=== PATIENT | male | born 1950 | race Two or more races ===

== ENCOUNTER 2024-06-02 13:07 | Inpatient (IN) | payer MEDICARE ==
[2024-06-02 14:21] LABS: BASOPHILS ABSOLUTE AUTO 0.04 K/mm3 (0.00-0.23); BASOPHILS PERCENT AUTO 0 % (0-2); EOSINOPHILS ABSOLUTE AUTO 0.09 K/mm3 (0.00-0.68); EOSINOPHILS PERCENT AUTO 1 % (0-6); Hematocrit 43.4 % (37.0-53.0); Hemoglobin 15.4 g/dL (13.5-17.5); IMMATURE GRAN ABSOLUTE AUTO 0.03 K/mm3 (0.00-0.10); IMMATURE GRAN PERCENT AUTO 0 % (0-1); LYMPHOCYTES ABSOLUTE AUTO 3.03 K/mm3 (0.84-5.20); LYMPHOCYTES PERCENT AUTO 33 % (21-46); MONOCYTES ABSOLUTE AUTO 0.73 K/mm3 (0.16-1.47); MONOCYTES PERCENT AUTO 8 % (4-13); Mean Corpuscular HGB 32.5 pg (26.0-34.0); Mean Corpuscular HGB Conc 35.5 g/dL (31.5-36.5); Mean Corpuscular Volume 92 fL (80-100); Mean Platelet Volume 11.1 fL (9.1-12.4); NEUTROPHILS ABSOLUTE AUTO 5.34 K/mm3 (1.96-9.15); NEUTROPHILS PERCENT AUTO 58 % (41-73); Platelet Count 182 K/mm3 (150-400); RDW Coefficient Variation 12.4 % (11.7-14.2); RDW Standard Deviation 42.1 fL (35.1-46.3); Red Blood Cell Count 4.74 M/mm3 (4.30-5.90); White Blood Cell Count 9.26 K/mm3 (4.00-11.30)
[2024-06-02 14:43] LABS: Alanine Aminotransfer (ALT/SGP 15 U/L (12-78); Albumin, Blood 3.6 g/dL (3.4-5.0); Alk Phos 120 U/L (50-136); Anion Gap 10 mmol/L (3-11); Aspartate Aminotrans (AST/SGOT 14 U/L (12-37); Bilirubin, Total 0.8 mg/dL (0.1-1.0); Blood Urea Nitrogen 15 mg/dL (8-24); Bun/Creatinine Ratio 20.4 (12.0-20.0); CO2, Blood 27 mmol/L (21-32); Calcium, Blood 9.5 mg/dL (8.5-10.1); Chloride, Blood 103 mmol/L (98-108); Creatinine, Blood 0.74 mg/dL (0.60-1.20); Ethanol (Alcohol), Blood, Med <3 mg/dL; Globulin, Blood 3.7 g/dL (2.2-4.0); Glomerular Filtration Rate 95 (60-); Glucose, Blood 319 mg/dL (70-99); Potassium, Blood 4.1 mmol/L (3.5-5.5); Sodium, Blood 136 mmol/L (136-145); Total Protein, Blood 7.3 g/dL (6.4-8.2)
[2024-06-02 15:52] LABS: Source, Urine Voided
[2024-06-02 16:28] LABS: Appearance, Urine Clear (Clear); Bilirubin, Urine Neg (Neg); Blood, Urine Neg (Neg); Color, Urine Yellow (P-Yellow); Glucose Qualitative, Urine 4+ (Neg); Ketones, Urine 1+ (Neg); Leukocyte Esterase, Urine Neg (Neg); Nitrite, Urine Neg (Neg); Protein, Urine 1+ (Neg); Specific Gravity, Urine 1.025 (1.003-1.022); Urobilinogen, Urine NORM (Normal)
[2024-06-02] MEDS ORDERED: Aspirin 325 MG Tab PO ONE (16:50)
[2024-06-02] MEDS ORDERED: FLU VACC TS2024-25(6MOS UP)/PF 45 MCG/0.5 ML SYRINGE IM ONE (17:40)
[2024-06-02] MEDS ORDERED: NS 1,000 ML IV SCH (17:45)
[2024-06-02] MEDS ORDERED: Ondansetron HCl 2 MG / ML 2ML Vial IV PRN (17:45)
[2024-06-02] MEDS ORDERED: NS 1,000 ML IV ONE (18:00)
[2024-06-02 20:40] VITALS: BP 136/70
[2024-06-03 03:53] VITALS: BP 124/71
--- NOTE | 2024-06-03 05:28 | NUR ---
SHIFT SUMMARY PATIENT IS ALERT AND ORIENTED. PATIENT HAS HAD NO ACUTE EVENTS THIS SHIFT. VITAL SIGNS REVIEWED. PATIENT HAS BEEN SLEEPING COMFORTABLY ALL SHIFT SINCE ADMISSION. IV FLUIDS INFUSED ORDERED. PATIENT HAS HAD NO COMPLAINTS OF PAIN, NAUSEA, SOB OR VOMITTING THIS SHIFT. PATIENT HAS BEEN A STANDBY ASSIST TO BATHROOM WITH WALKER. BED IN LOCKED AND LOWEST POSITION. CALL LIGHT IN PLACE.
[2024-06-03 05:51] LABS: CHOL/HDL RATIO 5.1; Cholesterol 225 mg/dL (50-200); HDL Cholesterol 44 mg/dL (>39); LDL/HDL RATIO 3.4; Low Density Lipoprotein Chol 150 mg/dL (0-110); Triglycerides 156 mg/dL (30-160); Very Low Density Lipoprot Chol 31 mg/dL (6-32)
[2024-06-03] MEDS ORDERED: Insulin Human Lispro 100 Units/ML 3ML Syringe SC SCH ×2 (07:30→11:30)
[2024-06-03 07:56] VITALS: BP 132/75
[2024-06-03] MEDS ORDERED: Insulin NPH 100 Unit / ML 10ML Vial SC ONE (08:25)
[2024-06-03] MEDS ORDERED: Aspirin 81 MG Chew PO SCH (09:00)
[2024-06-03] MEDS ORDERED: Atorvastatin 40 MG Tab PO SCH (09:00)
[2024-06-03] MEDS ORDERED: Enoxaparin 40 MG/0.4 ML SYR SC SCH (09:00)
[2024-06-03 14:43] VITALS: BP 104/64
--- NOTE | 2024-06-03 18:16 | NUR ---
SHIFT SUMMARY PT AOX2/3, NOT ABLE TO REMEMBER DATE, COOPERATIVE, ABLE TO MAKE NEEDS KNOWN. PT IS ATAXIC WITH GATE. RIGHT HAND IV. ON ROOM AIR, NS RUNNING 100ML/HR. SLOW TO RESPOND TO QUESTIONS. WAS SUPPOSED TO HAVE IMAGING TODAY, DUE TO INABILITY TO ATTAIN PREVIOUS STENT PLACEMENT INFORMATION, FOLLOW UP HEAD CT WITH BE SCHEDULED TOMORROW. ALL NEW INFORMATION SHOULD BE CALLED TO PT DAUGHTER SEGUNDO, PHONE NUMBER IN PAPER CHART. BED/CHAIR ALARM ACTIVE. PT HAS PURE WICK IN PLACE. BED IN LOWEST POSITION, CALL LIGHT WITHIN REACH.
[2024-06-03 20:34] VITALS: BP 89/66
[2024-06-03] MEDS ORDERED: NS 500 ML IV ONE (20:50)
[2024-06-03] MEDS ORDERED: Insulin Glargine-Yfgn 100 Unit/mL 3 ML SYR SC SCH ×2 (21:00)
--- NOTE | 2024-06-03 21:00 | NUR ---
PROVIDER CONTACT PATIENTS BP WAS DEPRESSED. TALKED TO DANIEL AND ORDERED A 500ML BOLUS, THEN CONTINUE MAINTAINENCE FLUIDS.
[2024-06-03 22:22] VITALS: BP 122/67
[2024-06-04 03:44] VITALS: BP 110/64
--- NOTE | 2024-06-04 05:16 | NUR ---
SHIFT SUMMARY PATIENT IS ALERT AND ORIENTED X2. PATIENT HAS HAD NO ACUTE EVENTS THIS SHIFT. PATIENT HAS HAD NO COMPLAINTS OF SOB, NAUSEA, PAIN OR VOMITTING THIS SHIFT. IV FLUIDS INFUSED. VITAL SIGNS REVIEWED. PATIENT HAD HYPOTENSION EARLIER IN SHIFT, BOLUSED 500ML OF FLUIDS PER PROVIDER. BP IMPROVED. BED IN LOCKED AND LOWEST POSITION. CALL LIGHT IN PLACE.
[2024-06-04 07:55] VITALS: BP 125/69
[2024-06-04 16:01] VITALS: BP 128/72
--- NOTE | 2024-06-04 18:17 | NUR ---
SHIFT SUMMARY PT A&OX3 AND ANSWERS QUESTIONS APPROPRIATELY. PT RECEIVED A CT SCAN THIS AM. PT RECEIVED SCHEDULED AND PRN MEDICATIONS WITH NO ADVERSE EFFECTS. PT VSS. NO COMPLAINTS OF CP/PRESSURE OR SOB. PT SPENT MOST OF SHIFT SITTING UP IN HIS CHAIR. PT BRIEF CHANGED PRN, REPOSITIONING ENCOURAGED/PERFORMED Q2HRS. PT LEFT IN A POSITION OF SAFETY WITH FALL PRECAUTIONS IN PLACE AND CALL LIGHT IN REACH.
[2024-06-04 19:59] VITALS: BP 122/74
[2024-06-04] MEDS ORDERED: Insulin Glargine-Yfgn 100 Unit/mL 3 ML SYR SC SCH (21:00)
--- NOTE | 2024-06-05 03:17 | NUR ---
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 ACCUCHECK COVERAGE WITH INSULIN - SEE MAR FOR DETAILS. SOME CONFUSION NOTED, VOIDED ON FLOOR, REDIRECTED, ENCOURAGED TO USE URINAL HE HAD DONE SO BEFORE. MED TELE SR IN THE 70'S. WAS ASSISTED TO BED FROM THE RECLINER. UNSTEADY. WOKE UP ONCE TO ASK IF HE COULD GO HOME, HE FELT HE HAD IMPROVED "SO MUCH". AGREED TO WAIT TO SPEAK TO THE MD IN THE AM. HAS BEEN RESTING QUIETLY WITH FEW INTERRUPTIONS SINCE. CALL LIGHT IN REACH, RAILS UP X 2 AND BED IN LOW POSITION FOR SAFETY. ABLE TO REPOSITION SELF IN BED WITHOUT ASSISTANCE. WILL CONT TO MONITOR
[2024-06-05 03:54] VITALS: BP 104/59
[2024-06-05 07:30] VITALS: BP 104/68
[2024-06-05] MEDS ORDERED: Metoprolol Succinate 25 MG TABCR PO SCH (09:00)
[2024-06-05] MEDS ORDERED: Losartan Potassium 25 MG Tab PO SCH (09:00)
[2024-06-05] MEDS ORDERED: ATOR80 PO (12:04)
[2024-06-05] MEDS ORDERED: ASPI81CH PO (12:04)
[2024-06-05] MEDS ORDERED: BASAGLAR K100 UNIT/6 SC (12:05)
[2024-06-05] MEDS ORDERED: HUMALOG KW100 UNIT/1 SC (12:08)
[2024-06-05] MEDS ORDERED: JARDIANCE10 MG PO (12:11)
[2024-06-05] MEDS ORDERED: LOSA25 PO (12:11)
[2024-06-05] MEDS ORDERED: METO25ER PO (12:12)
== END 2024-06-05 10:26 | DRG 65 ==
LOC: ER 13:07 → MEDS 17:40 → ERHOLD 17:40 → MEDS 20:39
PROVIDERS: Emergency Medicine; Nurse Practitioner Acute Care; ADMIT Internal Medicine
DX: I63.9 Cerebral infarction, unspecified (principal); I50.20 Unspecified systolic (congestive) heart failure; I25.10 Atherosclerotic heart disease of native coronary artery without angina pectoris; E78.5 Hyperlipidemia, unspecified; F03.A0 Unspecified dementia, mild, without behavioral disturbance, psychotic disturbance, mood disturbance, and anxiety; E11.65 Type 2 diabetes mellitus with hyperglycemia; I11.0 Hypertensive heart disease with heart failure; I25.2 Old myocardial infarction; Z91.81 History of falling; R29.702 NIHSS score 2; Z79.899 Other long term (current) drug therapy
CPT/HCPCS: 36415; 70450; 80053; 80061; 80320; 82947; 83036; 83735; 84443; 85025; 92610; 93005; 93010; 93880; 97110-CQ; 97112; 97116; 97116-CQ; 97162; 97166; 97535; 99285-25; A9270; C8929; J1650; J1815; J7030; J7040; Q9957